=== PATIENT | male | born 1955 | race Two or more races ===

== ENCOUNTER 2020-10-29 15:36 | Emergency (ER) | payer SELFPAY ==
[~2020-10-29] VITALS: Ht 170.2 cm; Wt 93.0 kg
[2020-10-29 15:37] VITALS: BP 130/68
[2020-10-29] MEDS ORDERED: PANTOPRAZOLE SODIUM 40 MG/VIAL IV STA (15:46)
[2020-10-29] MEDS ORDERED: SODIUM CHLORIDE 0.9% 1,000 ML IV ONE (16:00)
[2020-10-29] MEDS ORDERED: ONDANSETRON HCL 4MG/2ML INJ IV ONE (16:30)
[2020-10-29] MEDS ORDERED: LORAZEPAM 1MG TABLET PO ONE (16:45)
[2020-10-29] MEDS ORDERED: OLANZAPINE 5MG TABLET ODT PO ONE (16:45)
[2020-10-29 17:07] LABS: EOSINOPHILS % 1.7 % (0.0-5.0); HEMATOCRIT. 41.8 % (42.0-52.0); HEMOGLOBIN. 14.7 g/dL (14.0-18.0); LYMPHOCYTES % 22.1 % (20.0-50.0); MEAN CORPUSCULAR HEMOGLOBIN 33.5 pg (28.0-32.0); MEAN CORPUSCULAR VOLUME 95.4 fL (80.0-94.0); MEAN PLATELET VOLUME 9.4 fl (7.4-10.4); MONOCYTES % 5.8 % (2.0-8.0); NEUTROPHILS % 69.4 % (40.0-76.0); PLATELET 212 x1000/uL (130-400); RED BLOOD CELL COUNT 4.39 mill/uL (4.7-6.1); RED CELL DISTRIBUTION WIDTH 13.5 % (11.6-14.6)
[2020-10-29 17:13] LABS: CHLORIDE 107 mEq/L (98-107)
[2020-10-29 17:14] LABS: PROTHROMBIN TIME 10.4 sec (9.6-11.0)
[2020-10-29 17:20] LABS: ETHANOL BLOOD 142 mg/dL
[2020-10-29 18:17] LABS: CLARITY URINE CLEAR (CLEAR); COLOR URINE YELLOW (YELLOW); KETONES URINE TRACE (NEGATIVE); LEUKOCYTE ESTERASE URINE 2+ (NEGATIVE); NITRITE URINE NEGATIVE (NEGATIVE); OCCULT BLOOD URINE NEGATIVE (NEGATIVE); PROTEIN URINE NEGATIVE (NEGATIVE); SPECIFIC GRAVITY URINE 1.024 (1.005-1.030)
[2020-10-29 18:27] LABS: *AMPHETAMINES SCREEN URINE NEGATIVE (NEGATIVE); *BARBITURATES SCREEN URINE NEGATIVE (NEGATIVE); *BENZODIAZEPINES SCREEN URINE NEGATIVE (NEGATIVE); *COCAINE SCREEN URINE NEGATIVE (NEGATIVE); METHADONE URINE SCREEN NEGATIVE (NEGATIVE); OPIATES URINE SCREEN NEGATIVE (NEGATIVE)
[2020-10-29 18:28] LABS: CANNABINOID URINE SCREEN PRESUMTIVE POSITIVE (NEGATIVE); PHENCYCLIDINE URINE SCREEN NEGATIVE (NEGATIVE)
[2020-10-29] MEDS ORDERED: CEFTRIAXONE 1 G PREMIX 50 ML IV ONE (18:45)
[2020-10-29] MEDS ORDERED: OMEP20CA14 MT (19:56)
[2020-10-29] MEDS ORDERED: ONDA4TAB5 MT (19:56)
== END 2020-10-29 20:38 | disposition home or self-care (01) ==
LOC: ER 15:36
DX: R10.13 Epigastric pain (principal); F10.229 Alcohol dependence with intoxication, unspecified; R45.851 Suicidal ideations; Y90.6 Blood alcohol level of 120-199 mg/100 ml; Z85.038 Personal history of other malignant neoplasm of large intestine; Z85.048 Personal history of other malignant neoplasm of rectum, rectosigmoid junction, and anus; Z85.028 Personal history of other malignant neoplasm of stomach; Z92.21 Personal history of antineoplastic chemotherapy
CPT/HCPCS: 36415; 71045; 74176; 80053; 80305; 80307; 80320; 80329; 81003; 83690; 85025; 85610; 86850; 86900; 86901; 93005; 96361; 96374; 96375; 99285; C9113; J2405; J7030; G0480

== ENCOUNTER 2020-12-05 19:13 | Emergency (ER) | payer SELFPAY ==
[~2020-12-05] VITALS: Ht 177.8 cm; Wt 82.0 kg
[~2020-12-05 19:13] MED LIST: OMEP20CA14 MT; ONDA4TAB5 MT
[2020-12-05 19:17] VITALS: BP 148/94
[2020-12-05] MEDS ORDERED: ACETAMINOPHEN 325MG TABLET PO ONE (21:00)
[2020-12-05] MEDS ORDERED: METHOCARBAMOL 500MG TABLET PO ONE (21:00)
[2020-12-05] MEDS ORDERED: IBUP-2029 MT (21:01)
[2020-12-05] MEDS ORDERED: TOPUD PO (21:01)
[2020-12-05] MEDS ORDERED: METH-653 MT (21:01)
== END 2020-12-05 21:40 | disposition home or self-care (01) ==
LOC: ER 19:13
DX: M43.6 Torticollis (principal); R03.0 Elevated blood-pressure reading, without diagnosis of hypertension; G40.909 Epilepsy, unspecified, not intractable, without status epilepticus; F10.20 Alcohol dependence, uncomplicated; Y90.0 Blood alcohol level of less than 20 mg/100 ml; Z59.0 Homelessness; Z79.899 Other long term (current) drug therapy; Z85.028 Personal history of other malignant neoplasm of stomach
CPT/HCPCS: 99283

== ENCOUNTER 2020-12-06 00:55 | Emergency (ER) | payer SELFPAY ==
[~2020-12-06] VITALS: Ht 167.6 cm; Wt 82.0 kg
[~2020-12-06 00:55] MED LIST changes: +IBUP-2029 MT; +METH-653 MT; +TOPUD PO
[2020-12-06 01:18] VITALS: BP 138/77
[2020-12-06 01:50] LABS: BASOPHILS % 0.7 % (0.0-2.0); EOSINOPHILS % 0.8 % (0.0-5.0); HEMATOCRIT. 43.8 % (42.0-52.0); HEMOGLOBIN. 14.9 g/dL (14.0-18.0); LYMPHOCYTES % 20.2 % (20.0-50.0); MEAN CORPUSCULAR HEMOGLOBIN 33.1 pg (28.0-32.0); MEAN CORPUSCULAR VOLUME 97.3 fL (80.0-94.0); MEAN PLATELET VOLUME 9.3 fl (7.4-10.4); MONOCYTES % 8.5 % (2.0-8.0); NEUTROPHILS % 69.8 % (40.0-76.0); PLATELET 199 x1000/uL (130-400); RED CELL DISTRIBUTION WIDTH 13.6 % (11.6-14.6)
[2020-12-06 01:55] LABS: CHLORIDE 103 mEq/L (98-107)
[2020-12-06 01:59] LABS: ETHANOL BLOOD < 10 mg/dL
[2020-12-06 02:40] LABS: CLARITY URINE CLOUDY (CLEAR); COLOR URINE YELLOW (YELLOW); KETONES URINE TRACE (NEGATIVE); LEUKOCYTE ESTERASE URINE 2+ (NEGATIVE); NITRITE URINE NEGATIVE (NEGATIVE); OCCULT BLOOD URINE NEGATIVE (NEGATIVE); PROTEIN URINE NEGATIVE (NEGATIVE); SPECIFIC GRAVITY URINE 1.026 (1.005-1.030)
[2020-12-06 02:51] LABS: *AMPHETAMINES SCREEN URINE NEGATIVE (NEGATIVE); *BARBITURATES SCREEN URINE NEGATIVE (NEGATIVE)
[2020-12-06 02:52] LABS: *BENZODIAZEPINES SCREEN URINE NEGATIVE (NEGATIVE); *COCAINE SCREEN URINE PRESUMTIVE POSITIVE (NEGATIVE); CANNABINOID URINE SCREEN PRESUMTIVE POSITIVE (NEGATIVE); METHADONE URINE SCREEN NEGATIVE (NEGATIVE); OPIATES URINE SCREEN NEGATIVE (NEGATIVE); PHENCYCLIDINE URINE SCREEN NEGATIVE (NEGATIVE)
== END 2020-12-06 02:10 | disposition left against medical advice (07) ==
LOC: ER 00:55
DX: R22.1 Localized swelling, mass and lump, neck (principal); J45.909 Unspecified asthma, uncomplicated; Z53.21 Procedure and treatment not carried out due to patient leaving prior to being seen by health care provider; Z86.59 Personal history of other mental and behavioral disorders; Z98.890 Other specified postprocedural states; Z91.041 Radiographic dye allergy status; Z91.013 Allergy to seafood
CPT/HCPCS: 36415; 80053; 80305; 80320; 81003; 85025; 99283; G0480